=== PATIENT | male | born 1980 | race American Indian/Alaskan Native ===

== ENCOUNTER 2021-10-01 18:39 | Emergency (ER) | payer SELFPAY ==
[2021-10-02] MEDS ORDERED: oxyCODONE /ACETAMINOPHEN 5-325MG TAB PO ONE (07:35)
[2021-10-02] MEDS ORDERED: KETOROLAC 10 MG TAB PO ONE (07:35)
--- NOTE | 2021-10-02 08:23 | Emergency Department Report ---
ED General Adult HPI - General Chief complaint: Extremity Injury, Upper Stated complaint: RT ARM PAIN Time Seen by Provider: 10/02/21 07:10 Source: patient, EMS Mode of arrival: Stretcher Limitations: No Limitations - History of Present Illness Severity scale (0 -10): 9 - Related Data Previous Rx's Medication Instructions Recorded Last Taken Type Acetaminophen/Codeine [Tylenol 1 tab PO Q6H PRN #12 tab 10/02/21 Unknown Rx /Codeine # 3 tab] Ketorolac [Toradol] 10 mg PO Q6H PRN #12 tab 10/02/21 Unknown Rx Allergies Allergy/AdvReac Type Severity Reaction Status Date / Time No Known Allergies Allergy Verified 10/01/21 18:57 ED Review of Systems ROS: Stated complaint: RT ARM PAIN Other details as noted in HPI ED Past Medical Hx - Medications Home Medications: Home Medications Medication Instructions Recorded Confirmed Last Taken Type Acetaminophen/Codeine [Tylenol 1 tab PO Q6H PRN #12 tab 10/02/21 Unknown Rx /Codeine # 3 tab] Ketorolac [Toradol] 10 mg PO Q6H PRN #12 tab 10/02/21 Unknown Rx ED Physical Exam - General Limitations: No Limitations ED Course Vital Signs 10/01/21 18:56 Temperature 97.3 F L Pulse Rate 90 Respiratory 14 Rate Blood Pressure 132/88 [Left] O2 Sat by Pulse 98 Oximetry Critical care attestation.: If time is entered above; I have spent that time in minutes in the direct care of this critically ill patient, excluding procedure time. ED Disposition Clinical Impression: Pain Disposition: 01 HOME / SELF CARE / HOMELESS Is pt being admited?: No Does the pt Need Aspirin: No Condition: Stable Instructions: Pain Without a Known Cause, How to Use Cold Therapy, [id number] Additional Instructions: Take medications as prescribed. Follow up with your primary care provider for further evaluation and management. Prescriptions: Ketorolac [Toradol] 10 mg PO Q6H PRN #12 tab PRN Reason: Pain Acetaminophen/Codeine [Tylenol /Codeine # 3 tab] 1 tab PO Q6H PRN #12 tab PRN Reason: Pain , Severe (7-10) Referrals: REJI GRIDER MD [Staff Physician] - 3-5 Days Time of Disposition: 08:23
[2021-10-02 09:26] VITALS: BP 128/81
== END 2021-10-02 09:26 | disposition home or self-care (01) ==
LOC: ED 18:39
DX: M79.601 Pain in right arm (principal)
CPT/HCPCS: 99283